=== PATIENT | male | born 2000 | race Caucasian/White ===

== ENCOUNTER 2020-08-18 15:14 | Emergency (ER) | payer SELFPAY ==
[~2020-08-18 15:14] MED LIST: ANUSOL-HC CREAM30 GM PR; FLOMAX0.4 MG PO; FLOXIN 0.3% OTIC5 ML EARLF; IBUPROFEN600 MG PO; MIRALAX 119 GR119 GM GT; NORCO 7.5-3251 EACH PO; TORADOL 10 MG T10 MG PO; ZOFRAN ODT 4 MG4 MG SL; ZOFRAN4 MG PO
== END 2020-08-18 17:45 | disposition home or self-care (01) ==
LOC: ER1 15:14
DX: R10.9 Unspecified abdominal pain (principal); R11.0 Nausea; Z87.442 Personal history of urinary calculi; F17.200 Nicotine dependence, unspecified, uncomplicated
CPT/HCPCS: 99283

== ENCOUNTER 2021-09-26 18:13 | Emergency (ER) | payer SELFPAY ==
[2021-09-26] MEDS ORDERED: ANUSOL HC SUPP1 SUPP PR (23:13)
== END 2021-09-26 23:19 | disposition home or self-care (01) ==
LOC: ER1 18:13
DX: K64.8 Other hemorrhoids (principal)
CPT/HCPCS: 99283